=== PATIENT | male | born 1940 | race Caucasian/White ===

== ENCOUNTER 2017-07-28 10:21 | Outpatient (CLI) | payer MEDICARE, OTHER | END 2017-07-28 10:22 | disposition home or self-care (01) | LOC: BICULT 10:21 | PROVIDERS: ATTEND Internal Medicine Nephrology | DX: N18.3 Chronic kidney disease, stage 3 (moderate) (principal); N28.1 Cyst of kidney, acquired; N27.1 Small kidney, bilateral | CPT/HCPCS: 76700; 76770 ==

== ENCOUNTER 2017-09-12 11:20 | Outpatient (CLI) | payer MEDICARE, OTHER | END 2017-09-12 11:21 | disposition home or self-care (01) | LOC: BICRAD 11:20 | PROVIDERS: ATTEND Internal Medicine | DX: R06.09 Other forms of dyspnea (principal); J81.1 Chronic pulmonary edema | CPT/HCPCS: 71046 ==

== ENCOUNTER 2017-10-04 12:50 | Outpatient (CLI) | payer MEDICARE, OTHER ==
--- NOTE | 2017-10-04 14:17 | NM ---
RADIONUCLIDE VENTILATION PERFUSION LUNG SCAN: History: Dyspnea. FINDINGS: Homogeneous uptake is present throughout each lung with the perfusion and ventilation imaging. Poor p erfusion gradient. No segmental or subsegmental perfusion mismatches. IMPRESSION: Normal ventilation perfusion lung scan. No evidence of pulmonary embolus. POS: [facility]
--- NOTE | 2017-10-04 14:26 | RAD ---
CHEST TWO VIEWS: History: Dyspnea. FINDINGS: Cardiac silhouette is upper limits of normal in size. Pulmonary vasculature also upper limits of norm al. Mediastinum is midline. No confluent airspace consolidation, pneumothorax, or pleural fluid. [place] llic clips overlie the right upper quadrant abdomen. IMPRESSION: Borderline cardiomegaly and pulmonary vascular prominence. No florid edema is evident. POS: [facility]
== END 2017-10-04 12:51 | disposition home or self-care (01) ==
LOC: NM 12:50
PROVIDERS: ATTEND Internal Medicine Cardiovascular Disease
DX: R06.02 Shortness of breath (principal)
CPT/HCPCS: 71046; 78582; A9540; A9558

== ENCOUNTER 2018-05-16 15:03 | Outpatient (CLI) | payer MEDICARE, OTHER ==
--- NOTE | 2018-05-16 15:59 | RAD ---
CHEST TWO VIEWS: History: Cough. Comparison: 09-24-17 FINDINGS: Cardiac silhouette is upper limits of normal in size. Pulmonary vasculature is slightly engorged with diffuse reticular nodular interstitial prominence and mild bilateral perihilar infiltrate. Mediastin um is midline. No lobar consolidation, pleural fluid, or pneumothorax. IMPRESSION: Pulmonary vascular congestion. Borderline pulmonary edema. POS: [facility]
--- NOTE | 2018-05-16 16:01 | RAD ---
CERVICAL SPINE SERIES SEVEN VIEWS INCLUDING FLEXION AND EXTENSION: FINDINGS: The assessment of the lower cervical spine is very limited. C7 is not visualized on the lateral view and only a portion of C6 is seen. On the flexion and extension views, flexion appears to be centered in the lower cervical spine at the C6-7 level which is not well seen. There are moderate degenerative facet changes along the course of the cervical spine. The disc spaces at C2-3 and C3-4 are fairly we ll preserved. Minimal anterolisthesis of C4 on C5 is noted with mild disc narrowing and moderate disc narrowing at C5-6. IMPRESSION: Arthritic changes of the spine and changes as discussed above. POS: [facility]
== END 2018-05-16 15:04 | disposition home or self-care (01) ==
LOC: BICRAD 15:03
PROVIDERS: ATTEND Internal Medicine
DX: M54.2 Cervicalgia (principal); R05 Cough; J20.9 Acute bronchitis, unspecified; M46.92 Unspecified inflammatory spondylopathy, cervical region; J81.1 Chronic pulmonary edema; R09.89 Other specified symptoms and signs involving the circulatory and respiratory systems
CPT/HCPCS: 36415; 71046; 72052; 80053; 83880; 84443; 85027

== ENCOUNTER 2018-05-26 13:15 | Outpatient (CLI) | payer MEDICARE, OTHER ==
--- NOTE | 2018-05-26 14:38 | RAD ---
CHEST TWO VIEWS: 05/26/2018 HISTORY: Bacterial pneumonia. COMPARISON: 05/16/2018 FINDINGS: Two views of the chest demonstrate cardiomegaly. Pulmonary vascular congestion is seen. There is ky phosis noted. No evidence of acute intrathoracic abnormality is seen. IMPRESSION: Cardiomegaly and pulmonary vascular congestion. No significant interval change is seen. POS: [facility]
== END 2018-05-26 13:16 | disposition home or self-care (01) ==
LOC: BICRAD 13:15
PROVIDERS: ATTEND Internal Medicine
DX: J15.9 Unspecified bacterial pneumonia (principal); R91.8 Other nonspecific abnormal finding of lung field; I51.7 Cardiomegaly; R09.89 Other specified symptoms and signs involving the circulatory and respiratory systems; N28.9 Disorder of kidney and ureter, unspecified; R05 Cough; E87.1 Hypo-osmolality and hyponatremia
CPT/HCPCS: 36415; 71046; 80048

== ENCOUNTER 2018-06-01 12:58 | Outpatient (CLI) | payer MEDICARE, OTHER ==
--- NOTE | 2018-06-01 15:23 | MRI ---
MRI CERVICAL SPINE WITHOUT CONTRAST: Technique: Multiplanar, multisequential imaging of the cervical spine obtained. Indications: Neck pain. Radicular symptoms. FINDINGS: Cervical vertebrae maintain height. Moderate degenerative changes are present throughout the cervical spine. There is anterolisthesis at C4-5 measured at 3-4 mm. Loss of disc space at C6-7. Anterior ost eophytes are prominent at C6-7. C2-3: No significant spondylosis or disc bulge. C3-4: Posterior disc bulge and spondylosis is present effacing the anterior subarachnoid space. These changes are more pronounced paracentrally to the left and there is left foraminal stenosis due to di sc osteophyte complex and facet hypertrophy. C4-5: There is anterolisthesis as stated above. There is a broad based disc bulge and spondylosis whi ch abuts the anterior cord. Mild right foraminal narrowing. C5-6: Disc bulge and spondylosis impinge on the cord. The findings are more pronounced paracentrally to the left where disc osteophyte complex compresses the anterior cord on the left. Bilateral foramin al encroachment due to facet and uncinate hypertrophy. C6-7: Disc bulge and spondylosis flattens the thecal sac and efface the anterior subarachnoid space. There is no significant cord impingement. Mild left foraminal narrowing. C7-T1: Mild spondylosis. Anterior subarachnoid space is preserved. There is evidence of right foramin al encroachment due to hypertrophic change. The cervical cord signal is normal. IMPRESSION: Degenerative disc changes at all levels. There is posterior disc bulge and spondylosis at multiple le vels as described above. There is anterolisthesis at C4-5 as noted. Cervical canal stenosis is most p ronounced at C5-6 where there is impingement on the cord paracentrally to the left due to disc osteop hyte complex. POS: [facility]
== END 2018-06-01 12:59 | disposition home or self-care (01) ==
LOC: BICMRI 12:58
PROVIDERS: ATTEND Internal Medicine
DX: M54.2 Cervicalgia (principal); R20.0 Anesthesia of skin; M50.31 Other cervical disc degeneration, high cervical region; M47.813 Spondylosis without myelopathy or radiculopathy, cervicothoracic region; M48.12 Ankylosing hyperostosis [Forestier], cervical region; M48.02 Spinal stenosis, cervical region; M50.91 Cervical disc disorder, unspecified, high cervical region
CPT/HCPCS: 72141

== ENCOUNTER 2018-07-11 15:01 | Outpatient (CLI) | payer MEDICARE, OTHER ==
--- NOTE | 2018-07-11 15:51 | RAD ---
PA AND LATERAL VIEWS CHEST: 07/11/18 HISTORY: Interstitial pneumonia. FINDINGS: Comparison is made with exam of 05/26/18. The heart is enlarged. The lungs are expanded with stable chronic changes in the lung pedraza bilater ally. No lobar consolidation, pneumothoraces, or pleural effusions are seen. There are degenerative changes in the spine. IMPRESSION: Chronic changes. POS: [facility]
== END 2018-07-11 15:02 | disposition home or self-care (01) ==
LOC: BICRAD 15:01
PROVIDERS: ATTEND Internal Medicine
DX: J84.9 Interstitial pulmonary disease, unspecified (principal); M47.9 Spondylosis, unspecified; I51.7 Cardiomegaly
CPT/HCPCS: 71046

== ENCOUNTER 2018-09-15 12:42 | Outpatient (CLI) | payer MEDICARE, OTHER ==
--- NOTE | 2018-09-15 14:06 | MRI ---
MRI Lumbar Spine Noncontrast: HISTORY: Chronic bilateral hip and back pain. Low back pain. COMPARISON: None FINDINGS: The visualized retroperitoneal structures demonstrate a normal appearance. Conus medullaris is normal in morphology and terminates at the L1 level. Left convex scoliosis of the lumbar spine is present. There is generalized heterogeneity of the bone marrow. There is loss of height centrally within the superior endplate of the L2 vertebral body with findings suggestive of a Schmorl's node. However, on the fluid sensitive sequence, there is increased signal intensity within the superior endplate of the L2 vertebral body which is worrisome for an asso ciated recent compression fracture. L1-2: There is a mild broad-based disc osteophyte complex with only slight effacement of the ventral aspect of the thecal sac. Left neural foramen is patent, but there is mild right-sided neural foraminal narrowing. L2-3: Mild broad-based disc osteophyte complex and facet hypertrophic changes are seen. Mild narrowin g of the central spinal canal is present. There is mild right-sided neural foraminal narrowing. The left neural foramen appears patent L3-4: There is loss of intervertebral disc height. Disc osteophyte complex is present. Facet hypertro phic changes are noted. There is generalized mild narrowing central spinal canal with narrowing of the subarticular zone on the right. Left neural foramen is patent with mild right-sided neural forami nal narrowing. L4-5: There is a mild broad-based disc osteophyte complex with moderate to severe facet hypertrophic changes and mild ligamentous thickening. Generalized mild narrowing of the central spinal canal. There is mild bilateral neural foraminal narrowing seen. L5-S1: There is trace grade 1 anterolisthesis of L5 on S1. Moderate facet hypertrophic changes and li gamentous thickening is present. There is generalized narrowing of the central spinal canal with mild narrowing of the subarticular zone on the right. The right neural foramen is patent, but there i s moderate to severe left-sided neural foraminal narrowing, and the disc osteophyte complex laterally contacts the exited left L5 nerve root and may affect the L5 nerve root laterally. IMPRESSION: 1. Recent compression fracture superior endplate L2 vertebral body with associated Schmorl's node in the superior endplate. 2. Left convex scoliosis lumbar spine. 3. Multilevel degenerative changes seen throughout the lumbar spine as described above. Findings are greatest at the L5-S1 level where there is trace anterolisthesis of L5 on S1, and the left lateral disc osteophyte complex contacts and likely affects the exiting left L5 nerve root in the left latera l aspect of the neural foramen.
== END 2018-09-15 12:43 | disposition home or self-care (01) ==
LOC: TBSIIMAG 12:42
PROVIDERS: ATTEND Neurological Surgery
DX: M54.5 Low back pain (principal); S32.029A Unspecified fracture of second lumbar vertebra, initial encounter for closed fracture; M41.9 Scoliosis, unspecified; M47.816 Spondylosis without myelopathy or radiculopathy, lumbar region; M47.817 Spondylosis without myelopathy or radiculopathy, lumbosacral region; M43.17 Spondylolisthesis, lumbosacral region
CPT/HCPCS: 72148

== ENCOUNTER 2018-10-11 14:08 | Outpatient (CLI) | payer MEDICARE, OTHER | END 2018-10-11 14:09 | disposition home or self-care (01) | LOC: CP 14:08 | PROVIDERS: ATTEND Internal Medicine | DX: J44.9 Chronic obstructive pulmonary disease, unspecified (principal); R06.00 Dyspnea, unspecified | CPT/HCPCS: 94060; 94727; 94729 ==

== ENCOUNTER 2019-01-15 13:39 | Outpatient (CLI) | payer MEDICARE, OTHER ==
--- NOTE | 2019-01-15 14:07 | RAD ---
CHEST TWO VIEWS: 01/15/2019 HISTORY: Short of breath. COMPARISON: 07/11/2018 FINDINGS: There is diffuse increased linear interstitial density with pulmonary hyperinflation, not significant ly changed when compared to the prior examination, consistent with COPD in the proper clinical settin g. Heart and mediastinal contours are stable. No focal consolidation or alveolar edema. There are num erous postoperative clips noted in the right upper quadrant. IMPRESSION: Stable appearance of the chest, as detailed above. POS: [facility]
== END 2019-01-15 13:40 | disposition home or self-care (01) ==
LOC: RAD 13:39
PROVIDERS: ATTEND Internal Medicine
DX: R06.00 Dyspnea, unspecified (principal)
CPT/HCPCS: 71046